=== PATIENT | female | born 1945 | race Two or more races ===

== ENCOUNTER 2017-05-25 16:28 | Outpatient (CLI) | payer OTHER ==
[~2017-05-25 16:28] MED LIST: HYZAAR 100-121 UDTAB PO; LEXAPRO5 MG PO; LOPRESSOR25 MG PO; PLAVIX75 MG PO; SYNTHROID112 MCG PO
== END 2017-05-25 17:16 | disposition home or self-care (01) ==
LOC: RAD 16:28
DX: M54.5 Low back pain (principal); M25.561 Pain in right knee; M25.562 Pain in left knee

== ENCOUNTER 2017-11-11 11:12 | Outpatient (CLI) | payer OTHER | END 2017-11-11 11:33 | disposition home or self-care (01) | LOC: SONOGRAMA 11:12 → MAMO-SONO 13:15 | DX: E03.8 Other specified hypothyroidism (principal); E04.8 Other specified nontoxic goiter; E78.2 Mixed hyperlipidemia; I10 Essential (primary) hypertension ==